=== PATIENT | male | born 1975 | race Two or more races ===

== ENCOUNTER 2024-09-08 12:26 | Emergency (ER) | payer OTHER ==
[~2024-09-08] VITALS: Ht 175.3 cm; Wt 93.4 kg
[2024-09-08] MEDS ORDERED: LANTUS SOL100 UNIT/1 SQ (13:29)
[2024-09-08] MEDS ORDERED: HUMALOG100 UNIT/2 SQ (13:30)
[2024-09-08] MEDS ORDERED: GUAIFENESIN/DEXTROMETHORPHAN 10ML BLIST.PACK PO ONE (15:30)
[2024-09-08] MEDS ORDERED: GUAIFEN/DEXTROMETHORPHAN/PE 10 ML BLIST.PACK PO ONE (15:34)
[2024-09-08 16:13] LABS: HEMOGLOBIN 16.4 g/dL (13-16.00); MEAN CELL VOLUME 87.8 fL (80.0-100.00); MEAN CORPUSCULAR HEMOGLOBIN 30.7 pg (27.00-32.0); PLATELET COUNT 294 K/uL (150-450); RED BLOOD COUNT 5.35 M/uL (4.00-6.00); RED CELL DISTRIBUTION WIDTH 13.4 % (11.5-14.5)
[2024-09-08] MEDS ORDERED: TUSSIN DM LIQU118 ML PO (16:55)
== END 2024-09-08 17:03 ==
LOC: ER 12:29
PROVIDERS: General Practice
DX: B34.9 Viral infection, unspecified (principal); Z79.4 Long term (current) use of insulin; Z20.822 Contact with and (suspected) exposure to COVID-19; E09.40 Drug or chemical induced diabetes mellitus with neurological complications with diabetic neuropathy, unspecified